=== PATIENT | male | born 1985 | race Caucasian/White ===

== ENCOUNTER 2018-10-25 04:43 | Observation (INO) | payer OTHER ==
[2018-10-25] MEDS ORDERED: SODIUM CHLORIDE 0.9% 500 ML 500 ML IV STA ×2 (04:59→05:52)
[2018-10-25] MEDS ORDERED: MORPHINE SULFATE 4 MG/ML SYRINGE IV STA ×2 (04:59→05:52)
[2018-10-25] MEDS ORDERED: ONDANSETRON 4 MG/2 ML VIAL IVP STA (04:59)
[2018-10-25 05:15] LABS: Basophils % (A) 1 %; Eosinophils # (A) 0.2 k/uL (0-0.7); Eosinophils % (A) 2 %; HCT 42.1 % (39.0-53.0); HGB 13.9 gm/dL (13.0-17.5); Lymphocytes # (A) 2.8 k/uL (1.0-4.8); Lymphocytes % (A) 42 %; MCH 28.2 pg (25.0-35.0); MCHC 33.1 g/dL (31.0-37.0); MCV 85.2 fL (80.0-100.0); Mean Platelet Volume 6.8; Monocytes # (A) 0.4 k/uL (0-1.0); Monocytes % (A) 6 %; Neutrophils # (A) 3.2 k/uL (1.3-7.7); Neutrophils % (A) 48 %; Platelet Count 304 k/uL (150-450); RBC 4.95 m/uL (4.30-5.90); RDW 14.6 % (11.5-15.5); WBC 6.8 k/uL (3.8-10.6)
[2018-10-25 05:25] LABS: ALT 92 U/L (21-72); AST 60 U/L (17-59); African American GFR (CKD) >90 (>60 ml/min/1.73 sqM); Albumin 4.7 g/dL (3.5-5.0); Alkaline Phosphatase 52 U/L (38-126); Amylase 74 U/L (30-110); Anion Gap 11 mmol/L; Blood Urea Nitrogen 18 mg/dL (9-20); Calcium 9.5 mg/dL (8.4-10.2); Carbon Dioxide 28 mmol/L (22-30); Chloride 101 mmol/L (98-107); Glucose 127 mg/dL (74-99); Lipase 81 U/L (23-300); Potassium 3.7 mmol/L (3.5-5.1); Sodium 140 mmol/L (137-145); Total Bilirubin 0.5 mg/dL (0.2-1.3); Total Protein 7.9 g/dL (6.3-8.2)
--- NOTE | 2018-10-25 07:44 | ED ---
Abdominal Pain HPI <Steve Carvajal - Last Filed: 10/25/18 08:38> - General Source: patient Mode of arrival: ambulatory Limitations: no limitations - History of Present Illness MD Complaint: abdominal pain -: hour(s) Location: epigastric Radiation: none Migration to: no migration Severity: severe Quality: aching Consistency: constant Improves With: nothing Worsens With: nothing Associated Symptoms: nausea, vomiting <Demetris Desir - Last Filed: 10/26/18 13:46> - General Chief Complaint: Abdominal Pain Stated Complaint: abd pain Time Seen by Provider: 10/25/18 04:59 - Related Data Home Medications Medication Instructions Recorded Confirmed No Known Home Medications 10/25/18 10/25/18 Allergies Allergy/AdvReac Type Severity Reaction Status Date / Time No Known Allergies Allergy Verified 10/25/18 07:54 Review of Systems ROS Other: All systems not noted in ROS Statement are negative. <Steve Carvajal - Last Filed: 10/25/18 08:38> ROS Other: All systems not noted in ROS Statement are negative. Constitutional: Denies: fever, chills Respiratory: Denies: cough, dyspnea Cardiovascular: Denies: chest pain, palpitations, orthopnea, edema Gastrointestinal: Reports: as per HPI, abdominal pain, nausea, vomiting. Denies: hematemesis, melena, hematochezia Genitourinary: Denies: dysuria, hematuria, testicular pain, testicular mass Musculoskeletal: Denies: back pain Skin: Denies: rash Neurological: Denies: headache, weakness, numbness Hematological/Lymphatic: Denies: easy bleeding <Demetris Desir - Last Filed: 10/26/18 13:46> ROS Statement: Those systems with pertinent positive or pertinent negative responses have been documented in the HPI. Past Medical History Past Medical History: No Reported History History of Any Multi-Drug Resistant Organisms: None Reported Past Surgical History: No Surgical Hx Reported Past Psychological History: No Psychological Hx Reported Smoking Status: Never smoker Past Alcohol Use History: None Reported Past Drug Use History: None Reported - Past Family History Mother Family Medical History: No Reported History <Demetris Desir - Last Filed: 10/26/18 13:46> General Exam Limitations: no limitations General appearance: alert, in distress Head exam: Present: atraumatic, normocephalic Eye exam: Present: normal appearance. Absent: scleral icterus, conjunctival injection ENT exam: Present: normal oropharynx Neck exam: Present: normal inspection Respiratory exam: Present: normal lung sounds bilaterally. Absent: respiratory distress, wheezes, rales, rhonchi, stridor Cardiovascular Exam: Present: regular rate, normal rhythm, normal heart sounds. Absent: systolic murmur, diastolic murmur, rubs, gallop GI/Abdominal exam: Present: soft, tenderness, guarding. Absent: distended, rebo und, rigid, mass, pulsatile mass, hernia Extremities exam: Present: normal inspection, normal capillary refill. Absent: pedal edema, calf tenderness Back exam: Present: normal inspection. Absent: CVA tenderness (R), CVA tenderness (L) Neurological exam: Present: alert Skin exam: Present: warm, dry, intact, normal color. Absent: rash <Demetris Desir - Last Filed: 10/26/18 13:46> Course Vital Signs 10/25/18 10/25/18 10/25/18 04:52 05:53 07:43 Temperature 97.6 F 97.1 F L Pulse Rate 79 55 L 56 L Respiratory 18 18 16 Rate Blood Pressure 129/67 122/77 127/78 O2 Sat by Pulse 98 98 Oximetry 10/25/18 10:09 Temperature Pulse Rate 76 Respiratory 16 Rate Blood Pressure 126/76 O2 Sat by Pulse 99 Oximetry Medical Decision Making - Lab Data Result diagrams: 10/25/18 05:08 10/25/18 05:08 - Radiology Data Radiology results: report reviewed (Ultrasound shows sludge and wall thickening) <Steve Carvajal - Last Filed: 10/25/18 08:38> - Lab Data Result diagrams: 10/26/18 06:53 10/26/18 06:53 <Demetris Desir - Last Filed: 10/26/18 13:46> - Medical Decision Making Patient reevaluated and resting comfortably in bed. Patient does have mild tenderness right upper quadrant and epigastric region. Patient states nausea has resolved. Patient updated on results and plan. Case was discussed in detail with Dr. Perez, who will admit covering for hospital call. (Steve Carvajal) Patient's a 32-year-old man with acute onset of severe epigastric abdominal pain radiating to his back. His history and physical exam supportive of biliary disease. Patient pending ultrasound at time of shift change. (Demetris Desir) - Lab Data Lab Results 10/25/18 10/25/18 10/25/18 Range/Units 05:08 05:08 07:56 WBC 6.8 (3.8-10.6) k/uL RBC 4.95 (4.30-5.90) m/uL Hgb 13.9 (13.0-17.5) gm/dL Hct 42.1 (39.0-53.0) % MCV 85.2 (80.0-100.0) fL MCH 28.2 (25.0-35.0) pg MCHC 33.1 (31.0-37.0) g/dL RDW 14.6 (11.5-15.5) % Plt Count 304 (150-450) k/uL Neutrophils % 48 % Lymphocytes % 42 % Monocytes % 6 % Eosinophils % 2 % Basophils % 1 % Neutrophils # 3.2 (1.3-7.7) k/uL Lymphocytes # 2.8 (1.0-4.8) k/uL Monocytes # 0.4 (0-1.0) k/uL Eosinophils # 0.2 (0-0.7) k/uL Basophils # 0.0 (0-0.2) k/uL Sodium 140 (137-145) mmol/L Potassium 3.7 (3.5-5.1) mmol/L Chloride 101 (98-107) mmol/L Carbon Dioxide 28 (22-30) mmol/L Anion Gap 11 mmol/L BUN 18 (9-20) mg/dL Creatinine 1.18 (0.66-1.25) mg/dL Est GFR (CKD-EPI)AfAm >90 (>60 ml/min/1.73 sqM) Est GFR (CKD-EPI)NonAf 81 (>60 ml/min/1.73 sqM) Glucose 127 H (74-99) mg/dL Calcium 9.5 (8.4-10.2) mg/dL Total Bilirubin 0.5 (0.2-1.3) mg/dL AST 60 H (17-59) U/L ALT 92 H (21-72) U/L Alkaline Phosphatase 52 (38-126) U/L Total Protein 7.9 (6.3-8.2) g/dL Albumin 4.7 (3.5-5.0) g/dL Amylase 74 (30-110) U/L Lipase 81 (23-300) U/L Urine Color Yellow Urine Appearance Clear (Clear) Urine pH 8.5 H (5.0-8.0) Ur Specific [place] 1.018 (1.001-1.035) Urine Protein Trace H (Negative) Urine Glucose (UA) Negative (Negative) Urine Ketones Negative (Negative) Urine Blood Negative (Negative) Urine Nitrite Negative (Negative) Urine Bilirubin Negative (Negative) Urine Urobilinogen 3.0 (<2.0) mg/dL Ur Leukocyte Esterase Negative (Negative) Disposition Is patient prescribed a controlled substance at d/c from ED?: No Decision Time: 08:39 <Steve Carvajal - Last Filed: 10/25/18 08:38> <Demetris Desir - Last Filed: 10/26/18 13:46> Clinical Impression: Cholecystitis Disposition: ADMITTED IP TO THIS HOSP Condition: Good
[2018-10-25] MEDS ORDERED: MORPHINE SULFATE 2 MG/ML SYRINGE IVP STA (07:48)
--- NOTE | 2018-10-25 07:59 | US ---
EXAMINATION TYPE: US abdomen complete DATE OF EXAM: 10/25/2018 COMPARISON: NONE CLINICAL HISTORY: Pain. EXAM MEASUREMENTS: Liver Length: 17.3 cm Gallbladder Wall: 0.4 cm CBD: 0.8 cm Spleen: 12.1 cm Right Kidney: 11.2 x 5.1 x 5.5 cm Left Kidney: 11.9 x 5.5 x 5.4 cm Patient of large body habitus with severe overlying bowel gas, technically difficult and limited stud y. Pancreas: Obscured by bowel gas Liver: very limited visualization, seen through one intercostal window, attenuating, left lobe obscur ed, upper limits of normal in size Gallbladder: sludge, possible small stone within sludge, wall slightly thickened Evidence for sonographic Cahmorro's sign: no CBD: very limited visualization, appears slightly dilated Spleen: very limited visualization Right Kidney: Superior pole obscured by bowel gas, otherwise wnl Left Kidney: wnl Upper IVC: wnl Abd Aorta: mostly obscured by bowel gas, mid portion wnl The pancreas is not visualized. The liver is upper limits of normal in size measuring 17.3 cm. There is no evidence of biliary dilata tion. There is sludge within the gallbladder. Gallbladder wall measures 4 mm. This common hepatic duct matt ures 8 mm. There is no sonographic Chamorro's sign. The spleen is normal in size. Both kidneys are unremarkable. Visualized portions of aorta and IVC are normal. IMPRESSION: 1. BORDERLINE HEPATOMEGALY. 2. SLUDGE WITHIN THE GALLBLADDER WITH A THICKENED GALLBLADDER WALL. PLEASE CORRELATE FOR CHOLECYSTITI S.
[2018-10-25 08:07] LABS: Appearance,Urine Clear (Clear); Bilirubin,Urine Negative (Negative); Blood,Urine Negative (Negative); Color,Urine Yellow; Glucose,Urine (UA) Negative (Negative); Ketones,Urine Negative (Negative); Leukocyte Esterase,Urine Negative (Negative); Nitrite,Urine Negative (Negative); PH, Urine 8.5 (5.0-8.0); Protein,Urine Trace (Negative); Specific Gravity,Urine 1.018 (1.001-1.035)
[2018-10-25] MEDS ORDERED: HYDROmorphone 1 MG/ML 1 ML SYRINGE IVP PRN (08:40)
[2018-10-25] MEDS ORDERED: ONDANSETRON 4 MG/2 ML VIAL IVP PRN ×2 (08:40→12:17)
[2018-10-25] MEDS ORDERED: HYDROmorphone 0.5 MG/0.5 ML SYRINGE IVP PRN ×2 (08:40→12:17)
[2018-10-25] MEDS ORDERED: NALOXONE 0.4 MG/ML 1 ML VIAL IV PRN (08:40)
[2018-10-25] MEDS: PIPERACILLIN-TAZOBACTAM 3.375 GM in SODIUM CHLORIDE 0.9% 100 ML IVPB SCH ×3 (09:15→23:24)
[2018-10-25] MEDS: SODIUM CHLORIDE 0.9% 1,000 ML IV SCH ×2 (09:17→17:24)
--- NOTE | 2018-10-25 09:52 | P.GSHP ---
History of Present Illness H&P Date: 10/25/18 Chief Complaint: Abdominal pain The patient is a 32 year old man who had sudden onset of abdominal pain and came into the ED. He has never had this previously. Workup had shown cholelithiasis and acute cholecystitis. Denies colic stool, tea-colored urine. No fevers or chills. No prior abdominal surgery. There is a family history of gallbladder disease in his mother. He denies pain after eating but has been having quite a bit of heartburn lately and is using Tums quite frequently. - Review of Systems All systems: negative Past Medical History Past Medical History: No Reported History History of Any Multi-Drug Resistant Organisms: None Reported Past Surgical History: No Surgical Hx Reported Past Psychological History: No Psychological Hx Reported Smoking Status: Never smoker Past Alcohol Use History: None Reported Past Drug Use History: None Reported Medications and Allergies Home Medications Medication Instructions Recorded Confirmed Type No Known Home Medications 10/25/18 10/25/18 History Allergies Allergy/AdvReac Type Severity Reaction Status Date / Time No Known Allergies Allergy Verified 10/25/18 07:54 Surgical - Exam Osteopathic Statement: *. No significant issues noted on an osteopathic structural exam other than those noted in the History and Physical/Consult. Vital Signs Temp Pulse Resp BP 97.6 F 79 18 129/67 10/25/18 04:52 10/25/18 04:52 10/25/18 04:52 10/25/18 04:52 - General well developed, well nourished, no distress - Eyes normal ocular movement - ENT normal mucosa - Neck trachea midline, no lymphadectomy - Respiratory normal expansion, normal respiratory effort, clear to auscultation - Cardiovascular Rhythm: regular Abnormal Heart Sounds: no systolic murmur - Abdomen Abdomen: soft, tender (Right upper quadrant), guarding (Mild voluntary) Hernia: no umbilical - Integumentary Skin is not icteric Results - Labs 10/25/18 05:08 10/25/18 05:08 Abnormal Lab Results - Last 24 Hours (Table) 10/25/18 10/25/18 Range/Units 05:08 07:56 Glucose 127 H (74-99) mg/dL AST 60 H (17-59) U/L ALT 92 H (21-72) U/L Urine pH 8.5 H (5.0-8.0) Urine Protein Trace H (Negative) Diabetes panel 10/25/18 Range/Units 05:08 Sodium 140 (137-145) mmol/L Potassium 3.7 (3.5-5.1) mmol/L Chloride 101 (98-107) mmol/L Carbon Dioxide 28 (22-30) mmol/L BUN 18 (9-20) mg/dL Creatinine 1.18 (0.66-1.25) mg/dL Glucose 127 H (74-99) mg/dL Calcium 9.5 (8.4-10.2) mg/dL AST 60 H (17-59) U/L ALT 92 H (21-72) U/L Alkaline Phosphatase 52 (38-126) U/L Total Protein 7.9 (6.3-8.2) g/dL Albumin 4.7 (3.5-5.0) g/dL Calcium panel 10/25/18 Range/Units 05:08 Calcium 9.5 (8.4-10.2) mg/dL Albumin 4.7 (3.5-5.0) g/dL Pituitary panel 10/25/18 Range/Units 05:08 Sodium 140 (137-145) mmol/L Potassium 3.7 (3.5-5.1) mmol/L Chloride 101 (98-107) mmol/L Carbon Dioxide 28 (22-30) mmol/L BUN 18 (9-20) mg/dL Creatinine 1.18 (0.66-1.25) mg/dL Glucose 127 H (74-99) mg/dL Calcium 9.5 (8.4-10.2) mg/dL Adrenal panel 10/25/18 Range/Units 05:08 Sodium 140 (137-145) mmol/L Potassium 3.7 (3.5-5.1) mmol/L Chloride 101 (98-107) mmol/L Carbon Dioxide 28 (22-30) mmol/L BUN 18 (9-20) mg/dL Creatinine 1.18 (0.66-1.25) mg/dL Glucose 127 H (74-99) mg/dL Calcium 9.5 (8.4-10.2) mg/dL Total Bilirubin 0.5 (0.2-1.3) mg/dL AST 60 H (17-59) U/L ALT 92 H (21-72) U/L Alkaline Phosphatase 52 (38-126) U/L Total Protein 7.9 (6.3-8.2) g/dL Albumin 4.7 (3.5-5.0) g/dL - Imaging US - abdomen: report reviewed Assessment and Plan (1) Biliary colic Current Visit: Yes Status: Acute Code(s): K80.50 - CALCULUS OF BILE DUCT W/O CHOLANGITIS OR CHOLECYST W/O OBST SNOMED Code(s): 37963702 (2) Cholecystitis Current Visit: Yes Status: Acute Code(s): K81.9 - CHOLECYSTITIS, UNSPECIFIED SNOMED Code(s): 49993629 Plan: Laparoscopic cholecystectomy possible open. The procedure, risks, complications were discussed. Usual postoperative course was discussed. Questions were encouraged and answered. We'll do this for him today.
[2018-10-25 10:40] VITALS: BMI 34.8
[2018-10-25] MEDS: PANTOPRAZOLE 40 MG/10 ML VIAL IV SCH (10:50)
[2018-10-25] MEDS ORDERED: IV FLUID CONTINUATION 1,000 ML IV ONE (11:46)
[2018-10-25] MEDS ORDERED: DEXAMETHASONE SOD PHOSPHATE 10 MG/ML 1 ML VIAL IV ONE (11:54)
[2018-10-25] MEDS ORDERED: ONDANSETRON 4 MG/2 ML VIAL IVP ONE (11:56)
[2018-10-25] MEDS ORDERED: SCOPOLAMINE 1.5MG/72HR PATCH TRANSDERM ONE (11:58)
[2018-10-25] MEDS ORDERED: LIDOCAINE 1% 20 ML VIAL (10MG/ML) FOR IV START INTRADERMA PRN (12:17)
[2018-10-25] MEDS ORDERED: LACTATED RINGERS 1,000 ML IV SCH (12:30)
[2018-10-25] MEDS ORDERED: BUPIVACAINE (PF) 0.25% 30 ML VIAL SQ ONE ×2 (12:37→13:00)
[2018-10-25] MEDS ORDERED: SUCCINYLCHOLINE CHLORIDE 100 MG/5 ML SYR IV ONE (12:42)
[2018-10-25] MEDS ORDERED: LIDOCAINE 1% INJ 10MG/ML (20 ML MDV) ONE (12:42)
[2018-10-25] MEDS ORDERED: ROCURONIUM BROMIDE 10 MG/ML 10 ML VIAL IV ONE (12:42)
[2018-10-25] MEDS ORDERED: PROPOFOL 10 MG/ML 20 ML VIAL IV ONE (12:42)
[2018-10-25] MEDS ORDERED: GLYCOPYRROLATE 0.2 MG/ML 2 ML VIAL ONE (12:42)
[2018-10-25] MEDS ORDERED: MIDAZOLAM 2 MG/2 ML VIAL ONE (12:42)
[2018-10-25] MEDS ORDERED: fentaNYL (PF) 50 MCG/ML 2 ML AMP ONE (12:42)
[2018-10-25] MEDS ORDERED: NEOSTIGMINE 1 MG/ML 10 ML VIAL ONE (12:42)
[2018-10-25] MEDS ORDERED: BUPIVACAINE (PF) 0.5% 30 ML VIAL SQ ONE (13:00)
[2018-10-25] MEDS ORDERED: LACTATED RINGERS 1,000 ML IV ONE (13:12)
[2018-10-25] MEDS ORDERED: LIDOCAINE 0.5%-EPI 1:200,000 50 ML VIAL SQ ONE ×2 (13:33)
--- NOTE | 2018-10-25 13:44 | P.OP ---
Date of Procedure: 10/25/18 Preoperative Diagnosis: Cholelithiasis, acute cholecystitis Postoperative Diagnosis: Cholelithiasis, acute cholecystitis with gangrenous gallbladder Procedure(s) Performed: Laparoscopic cholecystectomy Anesthesia: PRO Surgeon: Danae Jauregui Estimated Blood Loss (ml): 50 Pathology: other (Gallbladder) Condition: stable Disposition: PACU Indications for Procedure: The patient presented with acute abdominal pain and findings on CAT scan consistent with acute cholecystitis Description of Procedure: The patient's taken the operative suite where he is prepped and draped in the usual sterile manner under general endotracheal anesthetic. An infraumbilical incision was made and a Veress needle was placed into the abdominal cavity. Pneumoperitoneum was established with CO2 gas. Trochars are placed through small skin incisions. The gallbladder was markedly distended with gangrenous changes of the wall. It was decompressed of about 30 mL's of normal-appearing bile. Cortes's pouch was then identified and grasped and retracted laterally. The cystic duct and cystic artery are dissected free. They're triply clipped and cut. The gallbladder is dissected free from the liver bed using electrocautery. The gallbladder is placed into a specimen retrieval bag. The liver bed is irrigated and small bleeding points were controlled with electrocautery. The excess irrigant was suctioned out. The pneumoperitoneum was released. The trochars were removed. The specimen was removed through the umbilical port site. The fascia at the umbilical port site was closed with 0 Vicryl. The skin incisions were closed with 4-0 Vicryl in a subcuticular ma nner. Steri-Strips and dressings were applied. He tolerated the procedure without difficulty and was taken to recovery room in satisfactory condition. According to or personnel, WERE correct.
[2018-10-25] MEDS ORDERED: HYDROcodone/APAP 5-325MG 1 EACH TAB PO PRN ×2 (15:04)
[2018-10-25] MEDS: KETOROLAC 30 MG/ML 1 ML VIAL IVP SCH ×2 (17:12→23:24)
[2018-10-26] MEDS: SODIUM CHLORIDE 0.9% 1,000 ML IV SCH (00:36)
[2018-10-26] MEDS: PANTOPRAZOLE 40 MG/10 ML VIAL IV SCH (05:23)
[2018-10-26] MEDS: KETOROLAC 30 MG/ML 1 ML VIAL IVP SCH (05:27)
[2018-10-26 07:20] VITALS: BP 104/66; PULSE 77; RESP 15; TEMP 98.4
[2018-10-26] MEDS: PIPERACILLIN-TAZOBACTAM 3.375 GM in SODIUM CHLORIDE 0.9% 100 ML IVPB SCH (07:21)
[2018-10-26 07:39] LABS: Basophils % (A) 0 %; Eosinophils % (A) 0 %; HCT 37.4 % (39.0-53.0); HGB 12.1 gm/dL (13.0-17.5); Lymphocytes # (A) 2.1 k/uL (1.0-4.8); Lymphocytes % (A) 20 %; MCH 28.3 pg (25.0-35.0); MCHC 32.4 g/dL (31.0-37.0); MCV 87.4 fL (80.0-100.0); Monocytes # (A) 0.8 k/uL (0-1.0); Monocytes % (A) 7 %; Neutrophils # (A) 7.5 k/uL (1.3-7.7); Neutrophils % (A) 71 %; Platelet Count 269 k/uL (150-450); RBC 4.27 m/uL (4.30-5.90); RDW 14.3 % (11.5-15.5); WBC 10.5 k/uL (3.8-10.6)
[2018-10-26 07:54] LABS: ALT 80 U/L (21-72); AST 49 U/L (17-59); African American GFR (CKD) >90 (>60 ml/min/1.73 sqM); Albumin 3.5 g/dL (3.5-5.0); Alkaline Phosphatase 39 U/L (38-126); Anion Gap 8 mmol/L; Blood Urea Nitrogen 16 mg/dL (9-20); Calcium 8.4 mg/dL (8.4-10.2); Carbon Dioxide 25 mmol/L (22-30); Chloride 105 mmol/L (98-107); Glucose 122 mg/dL (74-99); Potassium 4.5 mmol/L (3.5-5.1); Sodium 138 mmol/L (137-145); Total Bilirubin 0.6 mg/dL (0.2-1.3); Total Protein 6.3 g/dL (6.3-8.2)
--- NOTE | 2018-10-26 11:10 | P.DS ---
Providers Date of admission: 10/25/18 08:49 Expected date of discharge: 10/26/18 Attending physician: Danae Jauregui Primary care physician: Stated None - Discharge Diagnosis(es) (1) Biliary colic Current Visit: Yes Status: Acute (2) Cholecystitis Current Visit: Yes Status: Acute Hospital Course: The patient presented to the emergency department with acute abdominal pain. He was taken to the OR where he underwent a laparoscopic cholecystectomy for acute cholecystitis with gangrene. He was given perioperative antibiotics along with DVT and ulcer prophylaxis. Postoperatively he did well. [place] "great". And was felt to be stable for discharge. Procedures: Laparoscopic cholecystectomy Patient Condition at Discharge: Good Plan - Discharge Summary Discharge Rx Participant: No New Discharge Prescriptions: No Action No Known Home Medications Discharge Medication List No Known Home Medications 10/25/18 [History] Follow up Appointment(s)/Referral(s): Danae Jauregui DO [Doctor of Osteopathic Medicine] - 2 Weeks Activity/Diet/Wound Care/Special Instructions: Keep the Band-Aids on until tomorrow. They may then be removed and you may shower. No swimming or tub baths for 1 week. Expect some bruising by the incisions. Tylenol or Motrin for pain. Call if you develop fevers, chills, nausea or vomiting, concerns about the wounds. No heavy lifting until reevaluated in the office. Follow a lower fat diet(avoid fried foods and greasy foods as they can cause sudden diarrhea). Discharge Disposition: HOME SELF-CARE
== END 2018-10-26 13:40 | disposition home or self-care (01) ==
LOC: EC 04:43 → 4SSUR 08:49
PROVIDERS: ADMIT Surgery; ATTEND Surgery
DX: K80.42 Calculus of bile duct with acute cholecystitis without obstruction (principal); K82.A1 Gangrene of gallbladder in cholecystitis; R12 Heartburn
CPT/HCPCS: 47562; 96376; 96361; 96374; 96375; 99285; 36415; 88304; 80053 ×2; 82150; 83690; 85025 ×2; 81003; 87040; 76700; G0378 ×2; J2543 ×2; J2250; J2270 ×2; J1100; J2710; J2405; J2001; J3010; J1885; J1170; J0330; J2704; C9113